=== PATIENT | female | born 1960 | race Caucasian/White ===

== ENCOUNTER 2018-07-20 06:38 | Day surgery (SDC) ==
[2018-07-20] MEDS: TETRACAINE 0.5% UNIT-DOSE OP PRN ×2 (07:20→07:58)
[2018-07-20] MEDS: BETADINE OPTH PREP OP PRN ×2 (07:20→07:58)
[2018-07-20] MEDS: CYCLOGYL 2% OPTH OP PRN ×3 (07:21→07:31)
[2018-07-20] MEDS: LIDOCAINE 1%/PHENYLEPHRINE 1.5% BSS (SURGERY) INTRAOCULA ONE ×2 (07:25→08:21)
[2018-07-20] MEDS ORDERED: BSS WITH EPINEPHRINE OP ONE (07:28)
[2018-07-20] MEDS ORDERED: BRIMONIDINE TARTRATE 0.2% OPTH SOL OP PRN (07:28)
[2018-07-20] MEDS ORDERED: DEX-MOXI-KETOR OPTH INJ 1/0.5/0.4 MG/ML IO ONE (07:28)
[2018-07-20] MEDS ORDERED: ZOFRAN 4 MG/2 ML IVP ONE (07:28)
[2018-07-20] MEDS ORDERED: VERSED ONE (08:15)
[2018-07-20] MEDS ORDERED: ZOFRAN 4 MG/2 ML ONE (08:15)
[2018-07-20] MEDS ORDERED: SUBLIMAZE ONE (08:15)
[2018-07-20 10:49] VITALS: TEMP 97.9
[2018-07-21 14:31] VITALS: BP 125/46
== END 2018-07-20 09:15 | disposition home or self-care (01) ==
LOC: SURG 06:38
PROVIDERS: ATTEND Ophthalmology
DX: H25.811 Combined forms of age-related cataract, right eye (principal)

== ENCOUNTER 2018-08-10 08:47 | Day surgery (SDC) ==
[2018-08-10] MEDS: TETRACAINE 0.5% UNIT-DOSE OP PRN ×2 (10:00→10:35)
[2018-08-10] MEDS: BETADINE OPTH PREP OP PRN ×2 (10:00→10:35)
[2018-08-10] MEDS: CYCLOGYL 2% OPTH OP PRN ×3 (10:01→10:11)
[2018-08-10] MEDS ORDERED: LIDOCAINE 1% 20 ML MDV ID STA (10:08)
[2018-08-10] MEDS ORDERED: ZOFRAN 4 MG/2 ML IVP ONE (10:08)
[2018-08-10] MEDS ORDERED: BRIMONIDINE TARTRATE 0.2% OPTH SOL OP PRN (10:08)
[2018-08-10] MEDS: DEX-MOXI-KETOR OPTH INJ 1/0.5/0.4 MG/ML IO ONE ×2 (10:37→10:50)
[2018-08-10] MEDS: LIDOCAINE 1%/PHENYLEPHRINE 1.5% BSS (SURGERY) INTRAOCULA ONE ×2 (10:37→10:50)
[2018-08-10] MEDS: BSS WITH EPINEPHRINE OP ONE ×2 (10:37→10:50)
[2018-08-10] MEDS ORDERED: VERSED ONE (10:40)
[2018-08-10] MEDS ORDERED: ZOFRAN 4 MG/2 ML ONE (10:40)
[2018-08-10] MEDS ORDERED: SUBLIMAZE ONE (10:40)
[2018-08-10 14:07] VITALS: TEMP 98.1
[2018-08-12 10:22] VITALS: BP 128/78
== END 2018-08-10 11:40 | disposition home or self-care (01) ==
LOC: SURG 08:47
PROVIDERS: ATTEND Ophthalmology
DX: H25.812 Combined forms of age-related cataract, left eye (principal)